=== PATIENT | female | born 1980 | race Caucasian/White ===

== ENCOUNTER 2016-08-26 03:50 | Emergency (ER) | payer SELFPAY ==
[2016-08-26 04:01] VITALS: TEMP 97.6
[2016-08-26 04:20] VITALS: O2SAT 98
--- NOTE | 2016-08-26 04:30 | C.PDOC ---
History Of Present Illness 36 year old female presents to the ED with complaints of digitally and positionally reproducible pain to the parasternal border for two days. Patient notes dry non-productive cough occasionally and pain worsens upon ingestion of spicy foods. She denies any palpitations, shortness of breath, or fever. Time Seen by Provider: 08/26/16 04:24 Chief Complaint (Nursing): Chest Pain History Per: Patient History/Exam Limitations: no limitations Onset/Duration Of Symptoms: Days (2) Current Symptoms Are (Timing): Still Present Context: Food Quality: "Pain" Associated Symptoms: denies: Nausea, Dyspnea, Diaphoresis, Syncope Recent travel outside of the [place]: No Past Medical History Reviewed: Historical Data, Nursing Documentation, Vital Signs Vital Signs: Last Vital Signs Temp 97.6 F 08/26/16 03:58 Pulse 80 08/26/16 04:38 Resp 14 08/26/16 04:38 BP 118/78 08/26/16 04:38 Pulse Ox 98 08/26/16 04:38 Family History: States: Unknown Family Hx - Social History Hx Alcohol Use: Yes Hx Substance Use: No - Immunization History Hx Tetanus Toxoid Vaccination: No Hx Influenza Vaccination: No Hx Pneumococcal Vaccination: No Review Of Systems Constitutional: Negative for: Fever, Chills Cardiovascular: Positive for: Chest Pain. Negative for: Palpitations Respiratory: Negative for: Cough, Shortness of Breath Gastrointestinal: Positive for: Other (Positive for GERD ). Negative for: Nausea, Vomiting, Abdominal Pain, Diarrhea Physical Exam - Physical Exam Appears: Non-toxic, No Acute Distress Skin: Warm, Dry, No Rash Head: Atraumatic Oral Mucosa: Moist Neck: Supple Chest: Symmetrical, No Deformity, Tenderness (tenderness to bilateral sternum ) Cardiovascular: Rhythm Regular Respiratory: No Rales, No Rhonchi, No Stridor, No Wheezing Gastrointestinal/Abdominal: Soft, No Tenderness, No Distention, No Guarding, No Rebound Extremity: Normal ROM, No Tenderness Neurological/Psych: Oriented x3 ED Course And Treatment ECG: Interpreted By Me ECG Rhythm: Sinus Rhythm ECG Interpretation: Normal Rate From EC O2 Sat by Pulse Oximetry: 98 Pulse Ox Interpretation: Normal Medical Decision Making Medical Decision Making: digitally and positionally reproducable parasternal chest discomfort, recent dry cough, worse with eating spicy foods Consider GERD, costochondritis. EKG nl, no further w/u indicated. Disposition Doctor Will See Patient In The: Office Counseled Patient/Family Regarding: Studies Performed, Diagnosis - Disposition Referrals: [facility] [Outside] Disposition: HOME/ ROUTINE Disposition Time: 04:30 Condition: GOOD Additional Instructions: Omprazole 20 mg en la noche para bajar el acidez del estomago Sigue en la Clinica para eval del Gastroenterologo brigitte necessario Ibuprofeno 400-600 mg cada 6 horas brigitte necessario para los johnathan del pecho/ esternon No levanta nada pesada por jai semana. Prescriptions: Omeprazole 20 mg PO HS #30 tablet. Instructions: Gastroesophageal Reflux in Children (ED), Costochondritis (ED) Print Language: TELUGU - Clinical Impression Clinical Impression: Chest discomfort - Scribe Statement The provider has reviewed the documentation as recorded by the Scribe Gabrielle Cisse All medical record entries made by the Scribe were at my direction and personally dictated by me. I have reviewed the chart and agree that the record accurately reflects my personal performance of the history, physical exam, medical decision making, and the department course for this patient. I have also personally directed, reviewed, and agree with the discharge instructions and disposition.
[2016-08-26 04:39] VITALS: BP 118/78; PULSE 80; RESP 14
--- NOTE | 2016-08-28 17:39 | CARD ---
APPROVED REPORT EKG Measurement Heart [id number] <Conclusion> Normal sinus rhythm Normal ECG
== END 2016-08-26 04:46 | disposition home or self-care (01) ==
LOC: C.ER 03:50
DX: R07.89 Other chest pain (principal)